=== PATIENT | female | born 1975 | race Caucasian/White ===

== ENCOUNTER 2016-06-30 13:58 | Emergency (ER) | payer OTHER ==
[~2016-06-30] VITALS: Ht 162.6 cm; Wt 72.2 kg
[~2016-06-30 13:58] MED LIST: AZITHROMYCIN250 MG1 PO; BACTRIM,SEPT1 TABLET PO; BENTYL20 MG PO; CHLORDIAZEPOXI1 EACH PO; CYMBALTA60 MG PO; ENDOCET 5-3251 EACH PO; KEFLEX500 MG PO; KRISTALOSE10 GM PO; LEVOTHROID100 MCG PO; METHADONE HCL40 MG PO; NOHOMEMEDS; NORCO 5/3251 TABLET PO; PERCOCET 5/31 TABLET PO; PHENERGAN12.5 M1 PO; PREDNISONE50 MG PO; PROAIR HFA8.5 GM IH; PROCTOFOAM15 GM TP; PROMETHAZINE HC25 M1 PO; TRAMADOL HCL50 MG PO; ZESTRIL,PRINIVI10 MG PO; ZOFRAN4 MG PO
[2016-06-30 14:08] VITALS: BP 122/60
[2016-06-30] MEDS ORDERED: ULTRAM50 MG PO (15:13)
== END 2016-06-30 15:24 | disposition home or self-care (01) ==
LOC: EME 13:58
DX: S93.501A Unspecified sprain of right great toe, initial encounter (principal); W10.9XXA Fall (on) (from) unspecified stairs and steps, initial encounter
CPT/HCPCS: 73660; 99281; 99283

== ENCOUNTER 2016-10-16 14:09 | Emergency (ER) | payer OTHER ==
[~2016-10-16] VITALS: Ht 162.6 cm; Wt 70.8 kg
[~2016-10-16 14:09] MED LIST changes: +ULTRAM50 MG PO
[2016-10-16 15:33] LABS: MCH 30.9 PG (29.0-34.0); MCV 91.1 FL (83-99); MEAN PLAT.VOLUME 9.8 uM^3 (9.5-12.4); PLATELET COUNT 270 K/uL (156-360); RBC DIS.WIDTH-CV 12.1 % (11.8-14.6); RBC DIS.WIDTH-SD 40.7 % (39-53); RED BLOOD COUNT 5.27 M/uL (3.80-5.20); WHITE BLOOD COUNT 7.3 K/uL (4.1-10.2)
[2016-10-16 15:39] LABS: ADD MIUA? NO; BILIRUBIN NEGATIVE; BLOOD NEGATIVE; COLOR STRAW ((YELLOW)); GLUCOSE (STRIP) NEGATIVE; KETONES NEGATIVE; LEUKOCYTES NEGATIVE; NITRITE NEGATIVE; PROTEIN (STRIP) NEGATIVE; SPECIFIC GRAVITY 1.004 (1.000-1.030); UROBILINOGEN 0.2 MG/DL (0.2-1.0)
[2016-10-16 15:45] LABS: CHLORIDE 103 mEq/L (99-109); POTASSIUM 3.7 mEq/L (3.7-5.4); SODIUM 141 mEq/L (136-147)
[2016-10-16 15:48] LABS: GLUCOSE 68 mg/dL (70-99)
[2016-10-16 15:49] LABS: ANION GAP 9 MEQ/L (2-14)
[2016-10-16 15:50] LABS: TOTAL BILIRUBIN 0.4 mg/dL (0.0-1.0)
[2016-10-16 15:51] LABS: ALKALINE PHOSPHATASE 80 IU/L (3-129); GFR ESTIMATE (CALCULATED) > 59 mL/min/
[2016-10-16 15:52] LABS: UREA NITROGEN (BUN) 5 mg/dL (9-23)
[2016-10-16 15:55] LABS: LIPASE 18 U/L (1.0-51.0)
[2016-10-16] MEDS ORDERED: BENTYL10 MG PO (17:49)
[2016-10-16] MEDS ORDERED: ZOFRAN ODT4 MG PO (17:49)
[2016-10-16 18:32] VITALS: BP 99/63
== END 2016-10-16 18:43 | disposition home or self-care (01) ==
LOC: EME 14:09
PROVIDERS: Nurse Practitioner Family
DX: K52.9 Noninfective gastroenteritis and colitis, unspecified (principal); K64.4 Residual hemorrhoidal skin tags; K50.90 Crohn's disease, unspecified, without complications; G89.29 Other chronic pain; I10 Essential (primary) hypertension; Z87.442 Personal history of urinary calculi; F17.200 Nicotine dependence, unspecified, uncomplicated
CPT/HCPCS: 74177; 80053; 81003; 83690; 85027; 99281; 99285; J2405; J3010; J7030

== ENCOUNTER 2016-11-03 08:29 | Day surgery (SDC) | payer OTHER ==
[~2016-11-03] VITALS: Ht 162.6 cm; Wt 70.2 kg
[~2016-11-03 08:29] MED LIST changes: +BENTYL10 MG PO; +PROMETHAZINE12.5 M1 PO; +ZOFRAN ODT4 MG PO; +ZUBSOLV 2.9-0.1 EACH SL; +ZUBSOLV 5.7-1.1 EACH SL
[2016-11-03 09:15] VITALS: BP 124/79
[2016-11-03] MEDS ORDERED: PROCTOCREAM-HC30 GM PR (11:20)
[2016-11-03] MEDS ORDERED: COLACE100 MG PO (11:20)
[2016-11-03] MEDS ORDERED: PERCOCET 5/31 TABLET PO (11:20)
[2016-11-03 12:30] VITALS: BP 115/56
[2016-11-03 13:31] VITALS: BP 116/64
[2016-11-03 13:45] VITALS: BP 115/61
== END 2016-11-03 14:02 | disposition home or self-care (01) ==
LOC: SDC 08:29
DX: K64.5 Perianal venous thrombosis (principal); K64.1 Second degree hemorrhoids; K62.89 Other specified diseases of anus and rectum; K59.4 Anal spasm; K50.90 Crohn's disease, unspecified, without complications; F41.9 Anxiety disorder, unspecified; K62.5 Hemorrhage of anus and rectum; F19.10 Other psychoactive substance abuse, uncomplicated; R00.0 Tachycardia, unspecified; F17.210 Nicotine dependence, cigarettes, uncomplicated
CPT/HCPCS: 88304; J0131; J0585; J1100; J1170; J2250; J2405; J2550; J2765; J3010; S0030

== ENCOUNTER 2016-11-07 07:46 | Emergency (ER) | payer OTHER ==
[~2016-11-07] VITALS: Ht 162.6 cm; Wt 70.8 kg
[~2016-11-07 07:46] MED LIST changes: +COLACE100 MG PO; +PROCTOCREAM-HC30 GM PR
[2016-11-07 08:19] LABS: EOSINOPHIL (%) 1.3 % (0-5); EOSINOPHIL COUNT 0.2 K/uL (0-0.3); HEMATOCRIT 41.9 % (36.0-46.0); IMMATURE GRANULOCYTE (%) 0.3 % (0.0-0.7); LYMPHOCYTE COUNT 1.8 K/uL (1.0-2.8); MCH 30.6 PG (29.0-34.0); MCHC 34.1 G/DL (30.0-36.0); MCV 89.7 FL (83-99); MEAN PLAT.VOLUME 9.5 uM^3 (9.5-12.4); MONOCYTE (%) 7.6 % (3-12); MONOCYTE COUNT 0.9 K/uL (0-0.8); NEUTROPHIL (%) 75.7 % (45-76); PLATELET COUNT 264 K/uL (156-360); RBC DIS.WIDTH-CV 12.5 % (11.8-14.6); RBC DIS.WIDTH-SD 40.8 % (39-53); RED BLOOD COUNT 4.67 M/uL (3.80-5.20); WHITE BLOOD COUNT 11.9 K/uL (4.1-10.2)
[2016-11-07 08:22] LABS: CHLORIDE 108 mEq/L (99-109); POTASSIUM 3.8 mEq/L (3.7-5.4); SODIUM 143 mEq/L (136-147)
[2016-11-07 08:24] LABS: GLUCOSE 97 mg/dL (70-99)
[2016-11-07 08:25] LABS: ANION GAP 11 MEQ/L (2-14)
[2016-11-07 08:28] LABS: GFR ESTIMATE (CALCULATED) > 59 mL/min/
[2016-11-07 08:29] LABS: UREA NITROGEN (BUN) 5 mg/dL (9-23)
[2016-11-07] MEDS ORDERED: PERCOCET 10/1 TABLET PO (10:25)
[2016-11-07 10:37] VITALS: BP 122/76
== END 2016-11-07 10:38 | disposition home or self-care (01) ==
LOC: EME 07:46
PROVIDERS: Emergency Medicine
DX: G89.18 Other acute postprocedural pain (principal); Z98.890 Other specified postprocedural states; K50.911 Crohn's disease, unspecified, with rectal bleeding; G89.29 Other chronic pain; F17.200 Nicotine dependence, unspecified, uncomplicated; Z87.442 Personal history of urinary calculi
CPT/HCPCS: 80048; 85025; 99281; 99285; J2270; J2405; J3010; J7030